=== PATIENT | female | born 2005 | race Caucasian/White ===

== ENCOUNTER 2025-03-13 14:50 | Outpatient (CLI) | payer BC, SELFPAY | END 2025-03-13 23:59 | disposition home or self-care (01) | LOC: LAB 14:52 | PROVIDERS: Visit Provider Internal Medicine | DX: R00.0 Tachycardia, unspecified (principal); R55 Syncope and collapse; G90.A Postural orthostatic tachycardia syndrome [POTS]; R00.2 Palpitations; R06.09 Other forms of dyspnea; R07.89 Other chest pain | CPT/HCPCS: 93270 ==

== ENCOUNTER 2025-04-05 08:15 | Outpatient (CLI) | payer BC, SELFPAY ==
--- NOTE | 2025-04-05 | CA_ITS ---
APPROVED REPORT Exam: Exercise Treadmill Technologist: Marcella Johnson Ht: 5 ft 6 in Wt: 142 lbs BSA: 1.73 m2 Medical History Medications: midodrine, propranolol Stress Test Details Test: Exercise stress testing was performed using a Dominic protocol. HR Resting HR: 86 bpm Max Heart Rate (APMHR): 200 bpm Max HR Achieved: 190 bpm Target HR (85% APMHR): 170 bpm % of APMHR: 95 Recovery HR: 120 bpm BP Resting BP: 120.0/81.0 mmHg Max BP: 131.0/83.0 mmHg Recovery BP: 131.0/83.0 mmHg ECG Resting ECG: SR Stress EC.[address] depression Clinical Exercise duration: 8.02 min Highest Stage Achieved: III Exercise capacity: 10.2 METs Stress ECG Conclusion Stage III: pale, mild chest pain bpm: 170 @ 3:40 Recovery Min 1: Severe nausea. moderate chest pain. Recovery Min 3: Symptoms resolving. Symptoms: Mild chest pain & palor with decreased BP. HR 190. Mod. chest pain & nausea during recovery. ST changes: 0.[address] depression CONCLUSION Average exercise capacity. Good HR augmentation at peak stress. No evidence of ischemia at peak stress on ECG. Electronically signed by : Kyara Quick MD 04/05/2025 14:21:31
--- OUTSIDE RECORDS SUMMARY | 2025-04-05 08:17 | XMS_ITS | Encounter Summary ---
Author Organization [facility] Address [address] [place] [address] Care Team Providers Care Ginger Farmer Name Role Phone Jonel Mercedes M.D. Primary Care Provider Encounter Details Date Type Department Care Team (Late st Contact Info) Description 05/05/2022 Lab Requisition [facility] Department of Laboratory Services [address] [place] [phone] Clinical Labs, [facility] Jonel Mercedes M.D. [address] [place] [address] Chronic cough Social History Tobacco Use Types Packs/Day Years Used Date Smoking Tobacco: Never Smokeless Tobacco: Never Alcohol Use Standard Drinks/Week Comments No 0 (1 standard drink = 0.6 oz pur e alcohol) Intimate Partner Violence Answer Date R ecorded If you are in a relationship , do you feel safe in that relationship? Yes 11/10/2018 Safe in relationship? (18 and older) Not on file 11/10/2018 Safety and Environment Answer Date Jey rded Do you have any concerns of physical abuse, sexual abuse, or neglect of your child? No 11/10/2018 Is an adult hurting you or your family? No 11/10/2018 Has someone ever touched you in a sexual way that was not ok with you? No 11/10/2018 Someone hurting you or family (18 and older) Not on file 11/10/2018 Historical abuse worry Not on file 9 If you have firearms in the home, are they all in locked storage AND unloaded? Not on file 11/10/2018 Comments Unknown Sex and Gender Information Value Date Recorded Sex Assigned at Not on file Legal Sex Female 5:19 AM EST Gender Identity Not on file Sexual Orientation Not on file documented as of this encounter Plan of Treatment Not on file documented as of this encounter Procedures Procedure Name Priority Date/Time Associated Diagnosis Comments COVID-19 (SARS-COV-2) Routine 05/05/2022 10:10 AM EDT Chronic cough documented in this encounter Results * COVID-19 Non-Employee (05/05/2022 10:10 AM EDT) SARS-CoV-2 (COVID-19) Negative Negative TAQPATH COVID-19 COMBO KIT[employer]EUA 05/06/2022 12:38 AM EDT CCM PCR Comment:This test was perfor med using the TaqPathTM COVID-19 Multiplex RT-PCR assay which received FDA approval under the Emergency Use Authorization (EUA). This assay targets the ORF1ab, S, and the N genes. Questions about the performance of this assay may be directed to the [facility] ([facility]) laboratory. This test has not been validated for use in asymptomatic patients, and results should be interpreted with caution. [employer] Swab 05/05/2022 10:1 0 AM EDT 05/05/2022 4:19 PM EDT Jonel Mercedes M.D. CHEMISTRY ORDERABLES Fi nal Result CCM PCR [address] [place] [address] documented in this encounter Visit Diagnoses Diagnosis Chronic cough Cough documented in this encounter Additional Health Concerns Infection Onset Date Last Indicated Resolved Time COVID-19 Rule Out 05/05/2022 05/05/2022 05/06/2022 12:38 AM EDT documented as of this encounter Care Teams Ginger Farmer Relationship Specialty Start Date End Date Jonel Mercedes M.D. [address] [place] [address] PCP - General 12/12/07 documented as of this encounter
--- OUTSIDE RECORDS SUMMARY | 2025-04-05 08:17 | XMS_ITS | Clinical Summary ---
Author Organization [facility] Address [address] [place] [address] Care Team Providers Care Property Specialist Name Role Phone Jonel Mercedes M.D. Primary Care Provider Source Comments [facility] is fully rolled out with thefollowing exceptions:General Clinical Research [facility] Allergies No known active allergies Medications ibuprofen (MOTRIN) 100 MG chewable tablet Take 200-300 mg by mouth. At onset of headache, not more than 3 times per week. Active probiotic (ALIGN) capsule Take 1 Cap by mouth. Active bisacodyl (DULCOLAX) 10 MG suppository Insert 1 Suppository (10 mg total) into the rectum every 48 hours as needed for see PRN comment (if no bowel movement on usual daily regimen). 16 Suppository 3 03/24/20 18 Active polyethylene glycol 3350 (MIRALAX) powder Take 2 Caps (34 gm total) by mouth 1 time a day. Mix in 16 oz of fluid and drink over max of 1 hour 1020 gm 11 03/24/20 18 Active magnesium citrate (CITROMA) 1.745 GM/30ML solution Take 4 mL/kg by mouth every 7 days. Active KIDS GUMMY BEAR VITAMINS (GUMMY BEAR) chewable tablet Chew 1 Tab 1 time a day. Active melatonin (MELADOX) 3 MG extended release tablet Take 1 Tab (3 mg total) by mouth at bedtime. 30 Tab 1 06/22/20 Active FLUoxetine (PROzac) 20 MG tablet Take 1.5 Tabs (30 mg total) by mouth 1 time a day. 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 Anisometropia 12/12/2007 Immunizations Immunization Administration Dates Next Due Influenza Vaccine 0.5 mL - f or patients 6 months and older 08/18/2016 Family History Medical History Relation Name Comments Crohn's Disease Father Diabetes Mellitus Father Other Father diabetes; crohn 's and colitis Ulcerative Colitis Father Migraines Maternal Grandfather Other Maternal Grandfather diabete s Sinus Headache Maternal Grandfather Other Maternal Uncle diabetes Sinus Headache Maternal Uncle Asthma Mother Migraines Mother Other Mother glasses Stroke Mother TIA at the age of 24 Heart Attack Other mat Gr. uncles Hypertension Other maternal Gr. au nts and uncles Other Other lazy eye , cous in Other Paternal Aunt diabetes Ulcerative Colitis Paternal Aunt Hypertension Paternal Grandfather Other Paternal Grandfather diabete s Other Paternal Grandmother lupus Amblyopia Neg Hx Blindness Neg Hx Cataracts/Zohaib.Childhood Neg Hx Eye Muscle Surgery Neg Hx Glaucoma/Zohaib.Childhood Neg Hx Nystagmus Neg Hx Ptosis Neg Hx Retinal Degeneration Neg Hx Strabismus Neg Hx Relation Name Status Comments Father Alive Maternal Grandfather Alive Maternal Grandmother Alive Maternal Uncle Mother Alive Other Paternal Aunt Paternal Grandfather Alive Paternal Grandmother Alive Sister 1 Roger Alive Sister 2 Alina Alive Social History Tobacco Use Types Packs/Day Years [...] on file Sexual Orientation Not on file Last Filed Vital Signs Vital Sign Reading Time Taken Comments Blood Pressure 105/71 11/10/2018 9:00 PM EST Pulse 95 11/10/2018 9:00 PM EST Temperature 36.6 C (97.9 F) 11/10/2018 9:00 PM EST Respiratory Rate 18 11/10/2018 9:00 PM EST Oxygen Saturation 98% 08/10/2018 2:42 PM EDT Inhaled Oxygen Concentration - - Weight 61.2 kg (134 lb 14.7 oz) 01/26/2019 1:14 PM EDT Height 164.8 cm (5' 4.88 ) 01/26/2019 1:14 PM ED T Body Mass Index 22.53 01/26/2019 1:14 PM EDT Plan of Treatment Health Maintenance Due Date Last Done Comments MENINGOCOCCAL B VACCINE (1 of 2 - Standard) 2020 COVID-19 Vaccine ( season) 2024 AMB SEASONAL FLU VACCINE (Season Ended) 2025 08/01/2018, 07/08/2017, 08/18/2016, Additional history exists DTAP/Tdap/Td IMMUNIZATION (7 - Td or Tdap) 02/02/2026 02/03/2016, 01/30/2009, 07/26/2006, Additional history exists HEPATITIS B IMMUNIZATION Completed 006, 05/06/2005, 03/05/2005 HIB IMMUNIZATION Completed 01/04/2006, , 03/05/2005 PNEUMOCOCCAL IMMUNIZATION Aged Out 2005, 07/06/2005, 05/06/2005, Additional history exists No longer eligible based on patient's age to complete this topic HEPATITIS A IMMUN (OPTIONAL 2-17 YRS) Discontinued 05/19/2007, 01/20/2007, 05/19/2006 IPV IMMUNIZATION Completed 01/30/2009, 09/2005, 05/06/2005, Additional history exists MMR IMMUNIZATION Completed 01/30/2009, 05/19/2006 VARICELLA IMMUNIZATION Completed 01/30/2009, 2005 MCV4 IMMUNIZATION Aged Out 02/03/2016 No longer eligible based on patient's age to complete this topic HPV IMMUNIZATION Completed 09/08/2016, , 02/03/2016 Respiratory Syncytial Virus (RSV) <20mo Aged Out No longer eligible based on patient's age to complete this topic Insurance FLO PURVIS NON-TRADITIONAL Care Teams Property Specialist Relationship Specialty Start Date End Date Jonel Mercedes M.D. [address] [place] [address] PCP - General 12/12/07
--- OUTSIDE RECORDS SUMMARY | 2025-04-05 08:18 | XMS_ITS | Clinical Summary ---
Author Organization [facility] Address [address] [facility] [place] [address] Phone Care Team Providers Care Remelt Sugar Boiler Name Role Phone Jonel Mercedes MD Primary Care Provider [phone] Allergies Active Allergy Reactions Criticality Noted Date Comments Sorbitol Other (See Comments) Low 12/03/2021 fructose intolerance Medications polyethylene glycol (GLYCOLAX, MIRALAX) 17 gram Oral Powder in Packet Take 17 g by mouth daily. Active folic acid (FOLVITE) 1 mg Oral Tablet Take by mouth daily. Active propranoloL (INDERAL) 10 mg Oral Tablet Take 10 mg by mouth daily. Active midodrine (PROAMATINE) 5 mg Oral Tablet Take 5 mg by mouth 2 times daily. Active prucalopride (MOTEGRITY) 2 mg Oral Tablet Take 2 mg by mouth daily. Active dicyclomine (BENTYL) 20 mg Oral TabletIndication s:Irritable bowel syndrome with constipation Take 1 Tablet by mouth 4 times daily (before meals and nightly). 120 Tablet 2 2 Active Additional Information Patient not taking.Reason: Therapy Completed, Reported on 09/30/2023 prucalopride (MOTEGRITY) 2 mg Oral TabletIndication s:Irritable bowel syndrome with constipation Take 1 Tablet by mouth daily. 30 Tablet 11 2 Active Additional Information Patient not taking.Reason: Therapy Completed, Reported on 09/30/2023 Active Problems Problem Noted Date Diagnosed Date Irritable bowel syndrome with constipation 12/03 Assessment & Plan (02/02/2022 3:36 PM EDT): At this point she is still struggling to have any significant bowel regimen consistency. She is having a bowel movement every 2 to 4 weeks. She is on Motegrity which is not really all that effective. At this point I will have her continue on pelvic floor therapy, follow-up to see me in 6 months and I will have her follow back up with [facility] as she was receiving the most effective care from there GI clinic. Assessment & Plan (12/03/2021 1:32 PM EST): Has tried and failed multiple medications. Also unable to take some medications d/t fructose intolerance and cannot take meds containing sorbitol. Will give script for Motegrity and Bentyl. Will discuss alternatives with attending. Medical History Medical History Date Comments IBS (irritable bowel syndrome) Family History Medical History Relation Name Comments Hearing Loss Father Hearing Loss Maternal Grandfather Hearing Loss Sister Relation Name Status Comments Father Maternal Grandfather Sister Social History Tobacco Use Types Packs/Day Years Used Date Smoking Tobacco: Never Smokeless Tobacco: Never Tobacco Cessation:Counseling Given: No Alcohol Use Standard Drinks/Week Comments Never 0 (1 standard drink = 0.6 oz pur e alcohol) Sexually Active Control Partners Comments Never Comments No Sex and Gender Information Value Date Recorded Sex Assigned at Not on file Legal Sex Female 7:46 AM EDT Gender Identity Not on file Sexual Orientation Not on file Obstetrics History Last Filed Vital Signs Vital Sign Reading Time Taken Comments Blood Pressure 92/74 09/30/2023 8:20 AM EST Pulse 92 09/30/2023 8:20 AM EST Temperature 36.2 C (97.2 F) 02/02/2022 2:28 PM EDT Respiratory Rate 18 09/30/2023 8:20 AM EST Oxygen Saturation 100% 09/30/2023 8:20 AM EST Inhaled Oxygen Concentration - - Weight 55.3 kg (122 lb) 02/02/2022 2:28 PM EDT Height 167.6 cm (5' 6 ) 02/02/2022 2:28 PM EDT Body Mass Index 19.69 02/02/2022 2:28 PM EDT Plan of Treatment Health Maintenance Due Date Last Done Comments Annual Wellness Exam 01/01/2008 HPV (1 - 3-dose series) 01/01/2020 Meningococcal B Vaccine (2 of 2 - Trumenba SCDM 2-dose series) 07/13/2021 01/10/2021 DTaP/TDaP/Td (2 - Tdap) 01/01/2024 01/30/2009 Hepatitis B Vaccine (1 of 3 - 19+ 3-dose series) 01/01/2024 COVID-19 Vaccine ( - season) 2024 Influenza Vaccine (Season Ended) 2025 10/22/2021, 08/07/2019, 08/01/2018, Additional history exists Pneumococcal Vaccine 0-49 Aged Out No longer eligible based on patient's age to complete this topic Insurance C/O SHANTHI GARCIA [address] [place] [id number] FLO PPO FLO PPO C/O SHANTHI GARCIA [address] [place] [address] [id number] FLO PPO C/O SHANTHI GARCIA [address] [place] [place] [id number] FLO PPO ANTHFERNANDO PPO ANTHFERNANDO PPO Care Teams Remelt Sugar Boiler Relationship Specialty Start Date End Date Jonel Mercedes MD [address] [facility] [address] [place] [address] PCP - General Pediatrics 04/04/16
--- OUTSIDE RECORDS SUMMARY | 2025-04-05 08:18 | XMS_ITS | Encounter Summary ---
Author Organization [facility] Address [address] [place] [address] Care Team Providers Care Used Car Lot Attendant Name Role Phone Jonel Mercedes M.D. Primary Care Provider Encounter Details Date Type Department Care Team (Late st Contact Info) Description 05/05/2022 Lab Requisition [facility] Department of Laboratory Services [address] [place] [phone] Jonel Mercedes M.D. [address] [place], [place] [id number] Chronic cough Social History Tobacco Use Types Packs/Day Years Used Date Smoking Tobacco: Never Assessed Intimate Partner Violence Answer Date R ecorded [...] on file documented as of this encounter Visit Diagnoses Diagnosis Chronic cough Cough documented in this encounter Additional Health Concerns Infection Onset Date Last Indicated Resolved Time COVID-19 Rule Out 05/05/2022 05/05/2022 05/06/2022 12:38 AM EDT documented as of this encounter Care Teams Used Car Lot Attendant Relationship Specialty Start Date End Date Jonel Mercedes M.D. [address] [place] [address] PCP - General 12/12/07 documented as of this encounter
--- OUTSIDE RECORDS SUMMARY | 2025-04-05 08:18 | XMS_ITS | Encounter Summary ---
Author Organization [facility] Address [address] [place] [address] Care Team Providers Care Electronics Installer Name Role Phone Jonel Mercedes M.D. Primary Care Provider Reason for Visit * Reason Onset Date Comments Follow Up 08/26/2018 Encounter Details Date Type Department Care Team (Late st Contact Info) Description 08/26/2018 Telephone [facility] Division of Gastroenterology, Hepatology & Nutrition [address] [place] [phone] Jada Moreno M.D. Gastroenterology & Nutrition [address] [place] [address] [address] [place] [address] Follow Up Social History Tobacco Use Types Packs/Day Years Used Date Smoking Tobacco: Never Smokeless Tobacco: Never Alcohol Use Standard Drinks/Week Comments No 0 (1 standard drink = 0.6 oz pur e alcohol) Comments Unknown Sex and Gender Information Value Date Recorded Sex Assigned at Not on file Legal Sex Female 5:19 AM EST Gender Identity Not on file Sexual Orientation Not on file documented as of this encounter Plan of Treatment Not on file documented as of this encounter Visit Diagnoses Not on filedocumented in this encounter Additional Health Concerns Infection Onset Date Last Indicated Resolved Time COVID-19 Rule Out 05/05/2022 05/05/2022 05/06/2022 12:38 AM EDT documented as of this encounter Care Teams Electronics Installer Relationship Specialty Start Date End Date Jonel Mercedes M.D. [address] [place] [address] PCP - General 12/12/07 documented as of this encounter
--- OUTSIDE RECORDS SUMMARY | 2025-04-05 08:18 | XMS_ITS | Encounter Summary ---
Author Organization [facility] Address [address] [place] [address] Care Team Providers Care Glass Handler Name Role Phone Jonel Mercedes M.D. Primary Care Provider Encounter Details Date Type Department Care Team (Late st Contact Info) Description 03/14/2018 Orders Only [facility] Division of Gastroenterology, Hepatology & Nutrition [address] [place] [phone] Jada Moreno M.D. Gastroenterology & Nutrition [address] [place] [address] [address] [place] [address] Social History Tobacco Use Types Packs/Day Years Used Date Smoking Tobacco: Never Smokeless Tobacco: Never Comments Unknown Sex and Gender Information Value [...] documented as of this encounter Care Teams Glass Handler Relationship Specialty Start Date End Date Jonel Mercedes M.D. [address] [place] [address] PCP - General 12/12/07 documented as of this encounter
[2025-04-05 08:58] LABS: Basophils % 0.7 % (0.1-2.0); Eosinophils # 0.2 Kmm3 (0.0-0.4); Eosinophils % 2.8 % (0.1-12.0); Hematocrit 38.5 % (37.0-47.0); Hemoglobin 12.5 g/dL (12.2-16.2); Immature Granulocytes # 0.01 10^3uL; Immature Granulocytes % 0.2 %; Lymphocytes # 1.5 K/mm3 (0.7-4.5); Lymphocytes % 28.8 % (10-50); Mean Corpuscular HGB Conc 32.5 g/dL (31.8-35.4); Mean Corpuscular Hemoglobin 28.1 pg (27.0-31.2); Mean Corpuscular Volume 86.5 fl (81-99); Monocytes # 0.5 K/mm3 (0.1-1.0); Monocytes % 8.4 % (1.7-9.3); Neutrophils # 3.2 K/mm3 (1.8-7.8); Neutrophils % 59.1 % (37.0-80.0); Nucleated Red Blood Cells # 0 10^3/uL; Nucleated Red Blood Cells % 0 %; Platelet Count 187 K/mm3 (142-424); Red Blood Count 4.45 M/mm3 (4.20-5.40); Red Cell Distribution Width 14.8 % (11.5-17.5); White Blood Count 5.4 K/mm3 (4.5-13.0)
--- NOTE | 2025-04-05 09:00 | CA_ITS ---
APPROVED REPORT EXAM: Comprehensive 2D, Doppler, and color-flow Echocardiogram Patient Account Analyst: Mckayla Mckinley RT(R) Ht: 5 ft 6 in Wt: 142lbs BSA: 1.73 BP: 110/71 mmHg Indications: chest pain 2D Dimensions Left Atrium 2.30 cm F: 2.7 - 3.8 EF AP4 50.30 % LVOT 1.92 cm (M/F) 1.5-2.5 GL Strain -16.8 % M-Mode Dimensions RVDd 2.13 cm (0.9-2.6) LVDd 3.24 cm (3.5-5.7) Ao Diam 2.71 cm (2.0-3.7) LVDs 2.40 cm (3.5-5.7) IVSd 0.83 cm (0.6-1.1) PWd 0.74 cm (0.6-1.1) EF (Teich) 52.10% FS 25.90% EDV (Teich) 42.20 mL ESV (Teich) 20.20 mL LV Diastology E Decel Time 200 (160-240 msec) E/A Ratio 2.2 MED E' 14.3 (>= 7 cm/sec) E'/MED E' Ratio 5.57 (<= 14) LAT E' 14.1 (>= 10 cm/sec) E/LAT E' Ratio 5.65 (<= 14) Mitral Valve MV E Max Ray. 80.0 (40-130 cm/s) MV A Velocity 37.0 (40-130 cm/s) E/A Ratio 2.17 MV Decel. Time 200 (160-240 ms) Left Ventricle The left ventricle is normal size. The left ventricular systolic function is normal. The left ventricular ejection fraction is within the normal range. There is normal left ventricular wall thickness. There is normal LV segmental wall motion. The left ventricular diastolic function is normal. LVEF is 55%. Right Ventricle The right ventricle is normal size. The right ventricular systolic function is normal. Atria The left atrium size is normal. The right atrium size is normal. There is no Doppler evidence of interatrial shunt. Aortic Valve The aortic valve is normal in structure. There is no aortic valvular stenosis. No aortic regurgitation is present. Mitral Valve The mitral valve is normal in structure. No evidence of mitral valve stenosis. Trace mitral regurgitation. Tricuspid Valve Tricuspid valve is grossly normal in structure and function. Trace tricuspid regurgitation. There is insufficient TR jet to estimate RVSP. Pulmonic Valve The pulmonary valve is normal in structure. Trace pulmonic regurgitation. Great Vessels The aortic root is normal in size. IVC is normal in size and collapses >50% with inspiration. Pericardium There is no pericardial effusion. Other Information Study Quality: Fair Conclusion Normal biventricular systolic function. No significant valvular stenosis or regurgitation. Electronically signed by : Kyara Quick MD 04/14/2025 16:47:52
[2025-04-05 09:21] LABS: Chloride 109 mmol/L (98-107); Potassium 3.8 mmoL/L (3.5-5.1); Sodium 138 mmol/L (136-145)
[2025-04-05 09:24] LABS: Anion Gap 7.8 mEq/L (5-15); Blood Urea Nitrogen 11 mg/dl (7-17); Calcium 10.7 mg/dl (8.4-10.2); Carbon Dioxide 25 mmol/L (22.0-30.0); Estimated Glomerular Filt Rate 107 ml/min (>60); GFR (African American) 129 ML/MIN (>60); Glucose 99 mg/dl (74-100); Iron 108 ug/dL (37-170)
[2025-04-05 09:35] LABS: Total Iron Binding Capacity 371 ug/dL (265-497)
[2025-04-05 09:39] LABS: Free T4 (Free Thyroxine) 1.09 ng/dl (0.78-2.19)
[2025-04-05 09:59] LABS: Ferritin 7.36 ng/ml (6.24-137)
[2025-04-05 10:28] LABS: Folate 5.69 ng/mL
[2025-04-05 10:40] LABS: Vitamin B12 647 pg/mL (239-931)
[2025-04-06 11:22] LABS: Sodium, Urine 124 mmol/24 hr (39-258); Sodium, Urine 61 mmol/L (Not Estab.)
[2025-04-09 16:15] LABS: PTH Related Peptide < 2.0 pmol/L (.)
[2025-04-09 18:20] LABS: Antinuclear Antibodies, IFA Negative (.)
[2025-04-10 23:09] LABS: 1,25 Dihydroxy Vitamin D 37 pg/mL (.); 1,25-Dihydroxy, Vitamin D-2 <10 pg/mL (.); 1,25-Dihydroxy, Vitamin D-3 37 pg/mL (.)
[2025-04-15 18:09] LABS: Dopamine, Plasma 13.7 pg/mL (0.0-36.7); Norepinephrine, Plasma 559 pg/mL (115-524)
== END 2025-04-05 23:59 | disposition home or self-care (01) ==
LOC: RT 08:16
PROVIDERS: PCP Surgery; Visit Provider Internal Medicine
DX: G90.A Postural orthostatic tachycardia syndrome [POTS] (principal)
CPT/HCPCS: 36415; 80048; 82384; 82397; 82533; 82607; 82652; 82728; 82746; 83520; 83540; 83550; 84300; 84439; 84443; 85025; 86038; 93017; 93018; 93306

== ENCOUNTER 2025-04-16 14:59 | Outpatient (CLI) | payer BC, SELFPAY ==
--- OUTSIDE RECORDS SUMMARY | 2025-04-16 15:02 | XMS_ITS | Clinical Summary ---
Author Organization [facility] Address [address] [facility] [place] [address] Phone Care Team Providers Care Communications Advisor Name Role Phone Jonel Mercedes MD Primary Care Provider [phone] Allergies Active Allergy Reactions Criticality Noted Date [...] will have her follow back up with [facility] as she was receiving the [...] C/O SHANTHI GARCIA [address] [place] [id number] FLO PPO FLO PPO C/O SHANTHI GARCIA [address] [place] [id number] FLO PPO C/O SHANTHI GARCIA [address] [place] [place] [id number] FLO PPO ANTHFERNANDO PPO ANTHFERNANDO PPO Care Teams Communications Advisor Relationship Specialty Start Date End Date Jonel Mercedes MD [address] [facility] [address] [place] [address] PCP - General Pediatrics 04/04/16
--- OUTSIDE RECORDS SUMMARY | 2025-04-16 15:02 | XMS_ITS | Encounter Summary ---
Author Organization [facility] Address [address] [place] [address] Care Team Providers Care Superintendent Nonselling Name Role Phone Jonel Mercedes M.D. Primary Care Provider Encounter Details Date Type Department Care Team (Late st Contact Info) Description 03/14/[address] [facility] Division of Gastroenterology, Hepatology & Nutrition [address] [place] [phone] Jada Moreno M.D. Gastroenterology & Nutrition [address] [place] [address] [address] [place] [address] Social History Tobacco Use Types [...] documented as of this encounter Care Teams Superintendent Nonselling Relationship Specialty Start Date End Date Jonel Mercedes M.D. [address] [place] [address] PCP - General 12/12/07 documented as of this encounter
--- OUTSIDE RECORDS SUMMARY | 2025-04-16 15:02 | XMS_ITS | Encounter Summary ---
Author Organization [facility] Address [address] [place] [address] Care Team Providers Care Convalescent Sitter Name Role Phone Jonel Mercedes M.D. Primary Care Provider Encounter Details Date Type Department Care Team (Late st Contact Info) Description 05/05/2022 Lab Requisition [facility] Department of Laboratory Services [address] [place] [phone] Jonel Mercedes M.D. [address] [place], [place] [id number] Chronic cough Social History Tobacco Use Types [...] documented as of this encounter Care Teams Convalescent Sitter Relationship Specialty Start Date End Date Jonel Mercedes M.D. [address] [place] [address] PCP - General 12/12/07 documented as of this encounter
--- OUTSIDE RECORDS SUMMARY | 2025-04-16 15:02 | XMS_ITS | Encounter Summary ---
Author Organization [facility] Address [address] [place] [address] Care Team Providers Care Brilliandeer Lopper Name Role Phone Jonel Mercedes M.D. Primary Care Provider Reason for Visit * Reason Onset Date Comments Follow Up 08/26/2018 Encounter Details Date Type Department Care Team (Late st Contact Info) Description 08/26/2018 Telephone [facility] Division of Gastroenterology, Hepatology & Nutrition [address] [place] [phone] Jada Moreno M.D. Gastroenterology & Nutrition [address] [place] [address] [address] [place] [address] Follow Up Social History Tobacco [...] documented as of this encounter Care Teams Brilliandeer Lopper Relationship Specialty Start Date End Date Jonel Mercedes M.D. [address] [place] [address] PCP - General 12/12/07 documented as of this encounter
--- OUTSIDE RECORDS SUMMARY | 2025-04-16 15:02 | XMS_ITS | Encounter Summary ---
Author Organization [facility] Address [address] [place] [id number] Care Team Providers Care Swim Coach Name Role Phone Jonel Mercedes M.D. Primary Care Provider Encounter Details Date Type Department Care Team (Late st Contact Info) Description 05/05/2022 Lab Requisition [facility] Department of Laboratory Services [address] [place] [id number] Clinical Labs, [facility] Jonel Mercedes M.D. [address] [place] [id number] Chronic cough Social History Tobacco Use [...] SARS-CoV-2 (COVID-19) Negative Negative [facility]PATH COVID-19 [employer]EUA 05/06/2022 12:38 AM EDT CCM [...] and results should be interpreted with caution. MULTICULTURAL MANAGER Swab 05/05/2022 10:1 0 AM EDT 05/05/2022 4:19 PM EDT Jonel Mercedes M.D. CHEMISTRY ORDERABLES Fi nal Result CCM PCR [address] [place] [address] documented in this encounter Visit Diagnoses Diagnosis Chronic cough Cough documented in this encounter Additional Health Concerns Infection Onset Date Last Indicated Resolved Time COVID-19 Rule Out 05/05/2022 05/05/2022 05/06/2022 12:38 AM EDT documented as of this encounter Care Teams Swim Coach Relationship Specialty Start Date End Date Jonel Mercedes M.D. [address] [place] [address] PCP - General 12/12/07 documented as of this encounter
--- OUTSIDE RECORDS SUMMARY | 2025-04-16 15:02 | XMS_ITS | Clinical Summary ---
Author Organization [facility] Address [address] [place] [id number] Care Team Providers Care Patrol Commander Name Role Phone Jonel Mercedes M.D. Primary Care Provider Source Comments [facility] is fully rolled out with thefollowing exceptions:General Clinical Research [facility] Allergies No known active allergies [...] topic Insurance FLO [employer]VIS NON-TRADITIONAL Care Teams Patrol Commander Relationship Specialty Start Date End Date Jonel Mercedes M.D. [address] [place] [address] PCP - General 12/12/07
[2025-04-16 15:54] LABS: Calcium 10.5 mg/dl (8.4-10.2)
[2025-04-16 16:07] LABS: Intact Parathyroid Hormone 65.9 pg/mL (7.5-53.5)
[2025-04-17 17:11] LABS: Calcium, Ionized 5.2 mg/dL (4.5-5.6)
== END 2025-04-16 23:59 | disposition home or self-care (01) ==
LOC: LAB 15:00
PROVIDERS: Visit Provider Internal Medicine
DX: G90.A Postural orthostatic tachycardia syndrome [POTS] (principal); R06.09 Other forms of dyspnea
CPT/HCPCS: 36415; 82310; 82330; 83970

== ENCOUNTER 2025-07-19 14:59 | Outpatient (CLI) | payer BC, SELFPAY ==
[2025-07-19 16:21] LABS: Iron 86 ug/dL (37-170)
[2025-07-19 16:30] LABS: Total Iron Binding Capacity 345 ug/dL (265-497)
[2025-07-19 16:57] LABS: Ferritin 8.18 ng/ml (6.24-137)
== END 2025-07-19 23:59 | disposition home or self-care (01) ==
LOC: LAB 15:00
PROVIDERS: Visit Provider Internal Medicine
DX: G90.A Postural orthostatic tachycardia syndrome [POTS] (principal)
CPT/HCPCS: 36415; 82728; 83540; 83550